=== PATIENT | male | born 1965 | race African-American/Black ===

== ENCOUNTER 2021-09-23 13:39 | Emergency (ER) | payer MEDICAID, OTHER ==
[~2021-09-23] VITALS: Ht 177.8 cm; Wt 89.0 kg
[~2021-09-23 13:39] MED LIST: IBUP100T53; METH-773
[2021-09-23] MEDS ORDERED: DIPHENHYDRAMINE 50MG/ML VIAL IV ONE (14:30)
[2021-09-23] MEDS ORDERED: SODIUM CHLORIDE 0.9% 1,000 ML IV ONE (14:30)
[2021-09-23] MEDS ORDERED: DEXAMETHASONE 10 MG/ML VIAL IV ONE (14:30)
[2021-09-23] MEDS: FAMOTIDINE 20MG/2ML VIAL IV ONE ×2 (14:53→15:10)
[2021-09-23] MEDS ORDERED: DIPH25CA83 PO (17:02)
[2021-09-23] MEDS ORDERED: P20 MT ×2 (17:02→17:04)
[2021-09-23] MEDS ORDERED: FAMO-135 MT (17:02)
[2021-09-23] MEDS ORDERED: EPIN0.3P3 IM (17:02)
[2021-09-23 17:30] VITALS: BP 134/80
== END 2021-09-23 18:02 | disposition home or self-care (01) ==
LOC: ER 13:54
DX: R22.0 Localized swelling, mass and lump, head (principal); I10 Essential (primary) hypertension; Z79.899 Other long term (current) drug therapy
CPT/HCPCS: 93005; 96361; 96374; 96375; 99284; J1100; J1200; J3490; J7030